=== PATIENT | female | born 1975 | race Caucasian/White ===

== ENCOUNTER 2017-05-20 09:28 | Day surgery (SDC) | payer OTHER ==
--- NOTE | 2017-05-05 15:40 | HP ---
PREOPERATIVE HISTORY AND PHYSICAL: DATE OF SURGERY/ADMISSION: 05/20/17 DATE OF OFFICE VISIT/ENCOUNTER: 04/24/17 ATTENDING SURGEON: Bozena Queen MD * (DICTATED BY BRODY WEINER) PROCEDURE: Left wrist ganglion cyst excision. CHIEF COMPLAINT: Cyst on left wrist. HISTORY OF PRESENT ILLNESS: This is a 41-year-old female who complains of a lump on the dorsal aspect of her left wrist that has been present for 1 to 3 months. She does not recall any specific injury, but she thinks it is getting larger. It bothers her when she does weight bearing exercises such as pushups and planks. She does a lot of Pilates and she has trouble doing that because of the mass on the back of her wrist. She denies any associated numbness or tingling. She would like to have the mass removed. PAST MEDICAL HISTORY: 1. Hypothyroidism. 2. History of breast cancer. PAST SURGICAL HISTORY: 1. Double mastectomy. 2. Lymph node removal. 3. Rn Emergency placement. 4. Mohs' surgery. 5. Chemo port installation. 6. Tonsillectomy. CURRENT MEDICATIONS: 1. Escitalopram oxalate daily. 2. Levothyroxine sodium 112 mcg daily. 3. Tamoxifen citrate. 4. Vitamin D 1000 units daily. ALLERGIES: No known drug allergies. FAMILY MEDICAL HISTORY: Diabetes, heart disease, stroke, cancer, and rheumatoid arthritis. SOCIAL HISTORY: The patient is employed as a realtor. She denies tobacco use and recreational drug use. She does admit to alcohol use on occasion. REVIEW OF SYSTEMS: General: Negative for fevers, chills, or night sweats. No known anesthesia problems in the past. HEENT: Negative for headache, lightheadedness, or syncopal episodes. Integumentary: Negative for abrasions, lesions, or open wounds. Cardiothoracic: Negative for hypertension, chest pain , palpitations, or edema. Pulmonary: Negative for shortness of breath with exertion, chronic cough, COPD. GI: Negative for nausea, vomiting, diarrhea, constipation, or GERD. : Negative for nocturia, urinary frequency, urgency, history of UTIs, or kidney problems. Musculoskeletal: Positive for current complaint. Negative for chronic or intermittent back pain or history of fractures. Neurological: Positive for anxiety/depression, negative for paresthesias, numbness, history of seizure, stroke or epilepsy. Endocrine: Positive for hypothyroid, negative for diabetes. Hematologic: Negative for easy bruising, anemia, excessive bleeding, or history of DVT. Infectious Disease: Negative for history of MRSA, hepatitis C, HIV. PHYSICAL EXAMINATION GENERAL: Well-developed, well-nourished, 41-year-old female in no acute distress. VITAL SIGNS: Height 5 feet 9 inches, weight 169 pounds, pulse rate 70, blood pressure 134/70. HEENT: Normocephalic, atraumatic. Pupils are equal, round, and reactive to light and accommodation. Extraocular movements are intact. NECK: Supple. No palpable lymph nodes. Throat is clear. CARDIOVASCULAR: Regular rate and rhythm. S1, S2. No murmurs, rubs or gallops. No edema. PULMONARY: Lungs are clear to auscultation bilaterally. No wheezes, rales, or rhonchi. ABDOMEN: Positive bowel sounds, soft, nontender. NEUROLOGICAL: Alert and oriented x3, cranial nerves II through XII are intact. Sensation is intact to light touch. MUSCULOSKELETAL: On exam of her left wrist, she has a tender mass on the dorsal aspect of her radial carpal joint. She has full range of motion of the wrist, but pain at the extremes of flexion and extension. Skin is intact. Neurovascular function is intact. IMAGING STUDIES: X-rays; AP, lateral, and oblique of the left wrist appear normal. IMPRESSION: Left dorsal wrist ganglion. PLAN: The patient is scheduled to undergo a left wrist ganglion cyst excision with Dr. Queen on 05/20/17. She will return to the office 10 to 14 days postop for followup and suture removal. A prescription for Tylenol No.3 was e-scribed to the patient's pharmacy for postoperative pain management. BRODY WEINER [id number]/[facility] #: [id number] CATHERINE
[~2017-05-20 09:28] MED LIST: Buffered Lidocaine 0.9% SYRIN* 5 ML/SYR SYRINGE INTRADERM ONE; Famotidine IV* 10 MG/ML 2 ML (20 mg) IV ONE; Lidocaine 1% INJ* 10 MG/ML 30 ML SDV ONE
[2017-05-20] MEDS ORDERED: fentaNYL* 50 MCG/ML 2 ML VIAL (100 MCG VIAL) ONE (10:21)
[2017-05-20] MEDS ORDERED: Midazolam* 1 MG/ML 5 ML VIAL (5 MG) ONE (10:21)
[2017-05-20] MEDS ORDERED: Famotidine IV* 10 MG/ML 2 ML (20 mg) ONE (10:37)
[2017-05-20] MEDS ORDERED: Acetaminophen TAB* 325 MG PO PRN (10:43)
[2017-05-20] MEDS ORDERED: oxyCODONE TAB* 5 MG TAB PO PRN (10:43)
[2017-05-20] MEDS ORDERED: Ondansetron INJ* 2 MG/ML VIAL ONE (11:07)
[2017-05-20] MEDS ORDERED: Propofol* 10 MG/ML 20 ML BTL IV PUSH ONE (11:07)
[2017-05-20] MEDS ORDERED: Lidocaine 2% PF * 5 ML VIAL ONE (11:07)
[2017-05-20] MEDS ORDERED: Ketorolac INJ* 30 MG/ML 1 ML VIAL ONE (11:07)
[2017-05-20 12:15] VITALS: BP 113/54
--- NOTE | 2017-05-21 01:28 | OP ---
DATE OF OPERATION: 05/20/17 [facility] DATE OF : 75 SURGEON: Bozena Queen MD. MEDICAL BILLING ASSOCIATE: BRODY Chao. ANESTHESIOLOGIST: Vivien Love MD ANESTHESIA: Local MAC. PRE-OP DIAGNOSIS: Left wrist ganglion cyst. POST-OP DIAGNOSIS: Left wrist ganglion cyst. OPERATIVE PROCEDURE: Excision left wrist ganglion cyst. INDICATIONS: Mario is a 41-year-old woman with a painful mass on the dorsal aspect of her left wrist. She presented for removal. ESTIMATED BLOOD LOSS: Zero. TOURNIQUET TIME: About 10 minutes. DESCRIPTION OF PROCEDURE: The patient was brought to the operating room and was given a sedation anesthetic and local infiltration of 10 cc of 1% plain lidocaine on the dorsal aspect of her left wrist. The skin of her left hand and forearm was prepped and draped in the usual sterile fashion. The hand and forearm were exsanguinated and the tourniquet elevated to 250 mmHg. A transverse incision was made centered over the mass. We dissected bluntly through the subcutaneous tissue down to the extensor tendons. There was some tenosynovitis surrounding the tendons and this was debrided. The tendons were then retracted and there was a broad-based ganglion cyst emanating from the wrist joint capsule and the scapholunate ligament. It was removed in its entirety and sent for pathology. The edges of the capsule in the dorsal aspect of the scapholunate ligament were cauterized with the Bovie. The wound was irrigated and the skin edges were reapproximated with 4-0 nylon suture. The wound was dressed with Xeroform, 4x4, Webril, and an Layo wrap. The patient tolerated the procedure well, was brought to the recovery room in good condition. [id number]/[facility] #: [id number] MTDD
== END 2017-05-20 12:39 | disposition home or self-care (01) ==
LOC: OREAST 09:28
PROVIDERS: ATTEND Orthopaedic Surgery
DX: M67.432 Ganglion, left wrist (principal); E03.9 Hypothyroidism, unspecified; Z85.3 Personal history of malignant neoplasm of breast
CPT/HCPCS: 81025; 88304; J1885; J2001; J2250; J2405; J2704; J3010